=== PATIENT | female | born 1960 | race Caucasian/White ===

== ENCOUNTER 2017-08-19 00:11 | Emergency (ER) | payer OTHER ==
[~2017-08-19] VITALS: Ht 167.6 cm; Wt 64.9 kg
[2017-08-19] MEDS ORDERED: METFORMIN HCL500 MG (00:17)
[2017-08-19 01:11] VITALS: BP 153/88
== END 2017-08-19 01:15 | disposition home or self-care (01) ==
LOC: M.ERS 00:11
DX: R06.00 Dyspnea, unspecified (principal); F41.9 Anxiety disorder, unspecified; I10 Essential (primary) hypertension; E11.9 Type 2 diabetes mellitus without complications; F17.210 Nicotine dependence, cigarettes, uncomplicated